=== PATIENT | male | born 1990 | race Asian ===

== ENCOUNTER 2019-09-12 17:18 | Inpatient (IN) | payer BC ==
[~2019-09-12 17:18] MED LIST: Iopamidol-370 76% 500 ML 1 ML ONE
[2019-09-12 18:13] LABS: #Basophils 0.1 thou/uL (0.0-0.2); #Lymphocytes 1.5 thou/uL (1.20-3.40); #Monocytes 1.5 thou/uL (0.11-0.59); %Basophils 0.4 % (0.0-1.0); %Eosinophils 0.1 % (0.0-10.0); %Lymphocytes 9.9 % (21.0-51.0); %Monocytes 10.2 % (0.0-10.0); %Neutrophils 79.4 % (42.0-75.0); Hemoglobin 15.1 g/dL (14.0-18.0); Mean Corpuscular HGB CONC 33.5 g/dL (32.0-36.0); Mean Corpuscular Hemoglobin 30.5 pg (27.0-31.0); Mean Platelet Volume 8.9 fL (7.4-10.4); Platelet Count 308 thou/uL (130-400); RBC Distribution Width 10.8 % (11.5-14.5); Red Blood Cell (RBC) Count 4.95 mill/uL (4.70-6.10); White Blood Cell (WBC) Count 15.1 thou/uL (4.8-10.8)
[2019-09-12] MEDS ORDERED: Piperacillin/Tazobactam 4.5 GM VIAL ONE (18:31)
--- NOTE | 2019-09-12 18:36 | CT ---
CT ABDOMEN WITH CONTRAST CT PELVIS WITH CONTRAST: DATE: 09/12/2019 HISTORY: 29-year-old male with right lower quadrant abdominal pain, fever, and leukocytosis. Dr. Moses reported the findings by telephone to Dr. Middleton at 6:29 PM 09/12/2019 COMPARISON: None TECHNIQUE: IV injection of iodinated contrast media: administered. Oral contrast media:Not administered FINDINGS: The appendix is dilated to at least 10 mm caliber, has mural enhancement, and fluid-filled lumen. The re are at least 2 calcified appendicoliths. Abutting and partially surrounding this inflamed appendix, there is a large, ill-defined, approximate ly 5.5 x 4.5 x 7.5 cm mass in the right lower quadrant, with heterogeneous attenuation, and surrounding fat stranding that extends into adjacent portions of mesentery. This mass represents a ph legmon. There are multiple mildly enlarged adjacent mesenteric lymph nodes in the right lower quadrant superi or to the phlegmon. There is a small to moderate amount of free fluid in the dependent portion of the pelvic cavity. There is no pneumoperitoneum, small bowel dilation, or any abnormality of the abdominal aorta, pancre as, adrenals, liver, spleen, right kidney or urinary bladder. There is a tiny subcentimeter focal hypodensity at the posterior cortex of the left renal midpole, too small to definitively characterize , probably a cyst. No other abnormality of left kidney. Lung bases are clear. IMPRESSION: Ruptured acute appendicitis with large right lower quadrant phlegmon (there is no percutaneously drai nable organized fluid collection abscess)
[2019-09-12 18:38] LABS: ALT (SGPT) 9 U/L (8-55); AST (SGOT) 13 U/L (5-34); Albumin 4.9 g/dL (3.5-5.0); Alkaline Phosphatase 63 U/L (40-110); Anion Gap 21 mmol/L (10-20); BUN (Urea Nitrogen) 13 mg/dL (8.9-20.6); Bilirubin, Total 0.7 mg/dL (0.2-1.2); Calc. Creatinine Clearance 0 mL/min (70-130); Calcium 10.3 mg/dL (7.8-10.44); Carbon Dioxide 23 mmol/L (22-29); Chloride 96 mmol/L (98-107); Estimated GFR-MDRD 76; Globulin 4.2 g/dL (2.4-3.5); Glucose 79 mg/dL (70-105); Potassium 3.8 mmol/L (3.5-5.1); Protein, Total 9.1 g/dL (6.0-8.3); Sodium 136 mmol/L (136-145)
[2019-09-12] MEDS ORDERED: Sodium Chloride 0.9% 1,000 ML IV SCH (20:25)
[2019-09-12] MEDS ORDERED: Acetaminophen 325 MG TAB PO PRN (20:25)
[2019-09-12] MEDS ORDERED: Ondansetron PF 4 MG/2 ML Vial IVP PRN ×2 (20:25→21:58)
[2019-09-12] MEDS ORDERED: Ondansetron ODT 4 MG TAB SL PRN (20:25)
[2019-09-12 20:39] VITALS: BMI 21.7
--- NOTE | 2019-09-12 21:50 | HP ---
CHIEF COMPLAINT: Right lower quadrant pain. HISTORY OF PRESENT ILLNESS: This is a 29-year-old male who has noted pain in his right lower abdomen for the past week, slowly getting worse. Today, he noticed more swelling in his right lower quadrant associated with more sharp pain. Seen in the emergency department, where CT scan revealed appendiceal phlegmon. Pain is in the right lower quadrant, does not radiate; not associated with nausea, vomiting, change in stools. No history of chronic abdominal pain. PAST MEDICAL HISTORY: He denies. PAST SURGICAL HISTORY: He denies. MEDICATIONS: Taken daily, ibuprofen p.r.n. ALLERGIES: NO KNOWN DRUG ALLERGIES. SOCIAL HISTORY: No smoking, alcohol, or other drugs. REVIEW OF SYSTEMS: 10-system review of systems is otherwise negative unless described above. PHYSICAL EXAMINATION: VITAL SIGNS: Pulse 97, respirations 18, temperature 99.6. HEENT: Sclerae are anicteric. Oropharynx is clear. NECK: No lymphadenopathy. CHEST: Clear. HEART: Regular rate. ABDOMEN: Soft. Tender in the right lower quadrant with right lower quadrant mass. Otherwise benign abdomen. EXTREMITIES: No ischemia or edema to extremities. LABORATORY DATA: White count 15, hemoglobin 15, platelet count is 308. Creatinine is 1.14. CT scan shows findings consistent with appendiceal phlegmon. ASSESSMENT: Appendiceal phlegmon. PLAN: Admit for IV antibiotics, transition over to oral antibiotics, likely home on Tuesday on oral antibiotics. The treatment for appendiceal phlegmon is not appendectomy, it is conservative management with IV converted to oral antibiotics. Followup CT scan in a month. Usually, interval appendectomy is not even necessary. Job ID: [id number]
[2019-09-12] MEDS ORDERED: Dextrose 50% Abboject 50 ML SYRINGE SLOW IVP PRN (21:58)
[2019-09-12] MEDS ORDERED: Morphine 4 MG/ML VIAL SLOW IVP PRN (21:58)
[2019-09-12] MEDS ORDERED: Promethazine HCl 25 MG/ML VIAL IM PRN (21:58)
[2019-09-12] MEDS ORDERED: Morphine 2 MG/ML SYRINGE SLOW IVP PRN (21:58)
[2019-09-12] MEDS ORDERED: Ketorolac Tromethamine 30 MG/ML VIAL IVP PRN (21:58)
[2019-09-12] MEDS ORDERED: hydrALAZINE 20 MG/ML VIAL SLOW IVP PRN (21:58)
[2019-09-12] MEDS ORDERED: Dextrose 5% in Water 1,000 ML IV PRN (21:58)
[2019-09-12] MEDS: D5 1/2 NS w/20 mEq KCL 1,000 ML IV SCH (23:08)
[2019-09-12] MEDS: Piperacillin/Tazobactam 3.375 GM in Sodium Chloride 0.9% 100 ML IVPB SCH (23:09)
[2019-09-13] MEDS ORDERED: Acetaminophen 325 MG TAB PO PRN (00:19)
[2019-09-13] MEDS ORDERED: Piperacillin/Tazobactam 3.375 GM in Sodium Chloride 0.9% 100 ML IVPB SCH (02:00)
[2019-09-13] MEDS: Piperacillin/Tazobactam 3.375 GM in Sodium Chloride 0.9% 100 ML IVPB SCH ×4 (05:52→23:15)
[2019-09-13] MEDS: D5 1/2 NS w/20 mEq KCL 1,000 ML IV SCH ×3 (08:32→20:47)
[2019-09-13] MEDS: Famotidine/PF 20 mg/2ml Vial SLOW IVP SCH ×2 (08:37→20:02)
[2019-09-13] MEDS: Famotidine 20 MG TAB PO SCH ×2 (09:00→20:08)
--- NOTE | 2019-09-13 12:04 | PRG ---
DATE OF SERVICE: 09/13/2019 SUBJECTIVE: Mr. James is doing better today. His pain is slightly improved. He denies nausea. PHYSICAL EXAMINATION: VITAL SIGNS: He is afebrile and his vital signs are stable. ABDOMEN: Soft. He has persistent right lower quadrant mass consistent with his phlegmon. The rest of his abdomen is benign. ASSESSMENT: Appendiceal phlegmon, clinically stable. PLAN: Advance to full liquids. Continue Zosyn today. Suspect he will be able to be discharged home tomorrow on Levaquin and Flagyl. I have already written for those, prescriptions are on his chart. I would anticipate I will repeat his CT scan in a month or so. Job ID: [id number]
[2019-09-14] MEDS: Piperacillin/Tazobactam 3.375 GM in Sodium Chloride 0.9% 100 ML IVPB SCH (05:05)
[2019-09-14 08:04] VITALS: BP 117/74; TEMP 98.4
[2019-09-14] MEDS: Famotidine 20 MG TAB PO SCH (08:52)
[2019-09-14] MEDS: Famotidine/PF 20 mg/2ml Vial SLOW IVP SCH (08:53)
[2019-09-14] MEDS ORDERED: Saccharomyces boulardii 250 MG CAP PO SCH (09:00)
--- NOTE | 2019-09-14 11:04 | DIS ---
DATE OF ADMISSION: 09/12/2019 DATE OF DISCHARGE: 09/14/2019 DISCHARGE DIAGNOSIS: Appendicitis with phlegmon. PROCEDURES DURING ADMISSION: CT scan of abdomen, IV antibiotics. HOSPITAL COURSE: The patient was admitted. CT scan showed a large phlegmon. He was started on IV antibiotics. There was no drainable fluid. He is now feeling better. He is afebrile, pulse 74, and blood pressure 117/74. He is in no apparent distress. His abdomen is soft. He has a tender mass in the right lower quadrant. ASSESSMENT: Appendiceal phlegmon. PLAN: Oral antibiotics. Follow up with Dr. Luciano in 2 weeks. Job ID: [id number]
== END 2019-09-14 10:00 | disposition home or self-care (01) | DRG 373 ==
LOC: ERS 17:18 → SURG A 18:49
PROVIDERS: ADMIT Surgery; ATTEND Surgery
DX: K35.33 Acute appendicitis with perforation, localized peritonitis, and gangrene, with abscess (principal)
CPT/HCPCS: 74177; 80053; 85025; 96361; 96365; J2543; J3480; J3490; Q9967; S0028